=== PATIENT | male | born 1995 | race Caucasian/White ===

== ENCOUNTER 2021-04-14 03:12 | Emergency (ER) | payer OTHER ==
[~2021-04-14] VITALS: Ht 188 cm; Wt 89.4 kg
[~2021-04-14 03:12] MED LIST: HYDMOR2 PO; Percocet 5-3251 EACH PO; Zofran Odt4 MG SL
== END 2021-04-14 09:00 | disposition home or self-care (01) ==
LOC: ER 03:12
DX: S02.601A Fracture of unspecified part of body of right mandible, initial encounter for closed fracture (principal); W17.89XA Other fall from one level to another, initial encounter
CPT/HCPCS: 70486; 96372; 99283-25; J1170; J1885